=== PATIENT | female | born 1975 | race Caucasian/White ===

== ENCOUNTER 2017-05-08 17:58 | Emergency (ER) | payer MEDICARE, OTHER ==
[2017-05-08 18:47] VITALS: BP 126/87
[2017-05-08] MEDS ORDERED: Diphtheria,Pertussis(Acell),Tetanus Vaccine 0.5 ML SDV IM ONE (18:59)
--- NOTE | 2017-05-08 19:37 | EDM.PDOC ---
ED HPI GENERAL MEDICAL PROBLEM - General Chief Complaint: Laceration Stated Complaint: FINGER LACERATION Time Seen by Provider: 05/08/17 18:44 Source of Information: Reports: Patient History Limitations: Reports: No Limitations - History of Present Illness INITIAL COMMENTS - FREE TEXT/NARRATIVE: 41-year-old female presents for evaluation and treatment of the laceration to the right hand fourth finger. Patient reports this afternoon around noon she was opening a can of cat food. Reports that she sliced her finger on the can. States that the wound initially bled quite heavily but she was able to control the bleeding. She tried putting a bandage on the wound which caused significant bleeding again. She reports significant pain from the wound but has not taken anything for her discomfort. No numbness or tingling to the finger. No decreased ROM. Her tetanus is not up-to-date Onset: Today Location: Reports: Upper Extremity, Right Right Hand Pain Score (Numeric/FACES): 4 - Related Data Allergies Allergy/AdvReac Type Severity Reaction Status Date / Time No Known Allergies Allergy Verified 05/08/17 18:44 Home Meds: Home Meds Acetaminophen/oxyCODONE [Percocet 325-5 MG] 2 tab PO Q4H PRN #15 tablet [Rx] Metoclopramide [Reglan] 10 mg PO Q6H #30 tablet 03/24/15 [Rx] Ondansetron [Zofran ODT] 4 mg PO Q6H PRN #10 tab.dis 04/14/15 [Rx] Promethazine [Phenergan] 25 mg PO Q6H PRN #30 tablet 04/14/15 [Rx] diphenhydrAMINE HCl [Benadryl] 25 mg PO BID PRN #30 capsule 04/14/15 [Rx] Past Medical History Other Gastrointestinal History: Episodes of intractable vomiting [employer] History: Reports: Musculoskeletal History: Reports: Other (See Below) Other Musculoskeletal History: Degenerative Joint Disease, herniated 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, scoliosis - Past Surgical History Female Surgical History: Reports: Section Social & Family History - Family History Oncologic: Reports: Breast - Tobacco Use Smoking Status *Q: Former Smoker Years of Tobacco use: 10 Used Tobacco, but Quit: Yes Month Tobacco Last Used: September Second Hand Smoke Exposure: No - Caffeine Use Other Caffeine Use: drinks 6-7 cans of soda, and 2 energy drinks per day (5 hour energy) - Alcohol Use Days Per Week of Alcohol Use: 0 - Recreational Drug Use Recreational Drug Use: No ED ROS GENERAL - Review of Systems Review Of Systems: ROS reveals no pertinent complaints other than HPI. ED EXAM, SKIN/RASH Exam: See Below Exam Limited By: No Limitations General Appearance: Alert, WD/WN, No Apparent Distress, Anxious Respiratory/Chest: No Respiratory Distress, Lungs Clear, Normal Breath Sounds Cardiovascular: Normal Peripheral Pulses, Regular Rate, Rhythm, No Murmur Peripheral Pulses: 2+: Radial (R) Extremities: Normal Capillary Refill Neurological: Alert, Oriented, Normal Cognition Psychiatric: Normal Affect, Normal Mood Skin: Warm, Dry, Normal Color, Wound/Incision (1.5 cm laceration to the right hand 4th finger distal finer pad, liner, well approximated) Location, Skin: Upper Extremity, Right (4th distal finger) Characteristics: Linear Associated features: Tenderness ED SKIN PROCEDURES - Laceration/Wound Repair Right Distal Ventral Finger Lac/Wound length In cm: 1.5 (right hand 4th finger distal finger pad) Appearance: Subcutaneous, Linear, Clean Distal NVT: Neuro & Vascular Intact, No Tendon Injury Skin Prep: Chlorhexidine (Hibiciens), Saline, Sterile Drape Exploration/Debridement/Repair: Wound Explored, No Foreign Material Found Closed with: Dermabond Sterile Dressing Applied: Nurse Tetanus Status Addressed: Yes Complications: No Course - Vital Signs Last Recorded V/S: Last Vital Signs Temp 36.1 C 05/08/17 18:44 Pulse 80 05/08/17 18:44 Resp 18 05/08/17 18:44 BP 126/87 05/08/17 18:44 Pulse Ox 98 05/08/17 18:44 - Orders/Labs/Meds Meds: Medications Discontinued Medications Generic Name Dose Route Start Last Admin Trade Name Freq PRN Reason Stop Dose Admin Diphtheria/Tetanus/Acell Pertussis 0.5 ml 05/08/17 18:59 05/08/17 19:47 Adacel IM 05/08/17 19:00 0.5 ml .ONCE ONE Administration - Re-Assessments/Exams Free Text/Narrative Re-Assessment/Exam: 05/08/17 19:33 Wound was repaired with Dermabond. The patient tolerated this well. Her tetanus was updated. Discharge instructions as documented. Departure - Departure Time of Disposition: 19:35 Disposition: Home, Self-Care 01 Condition: Good Clinical Impression: Laceration - Discharge Information Instructions: Laceration Care, Adult, [id number] Referrals: PCP,None [Primary Care Provider] - Forms: ED Department Discharge Additional Instructions: OTC tylenol or motrin as needed for pain relief. monitor the area of signs of infection such as increased swelling, pus or redness. Present to the clinic or the ER should these develop. do not soak the wound. wash with gentle soap and water. Keep covered. the glue should fall off on its own in 7-10 days. Do not pick at it. Please return to the ER should your symptoms change or worsen.
== END 2017-05-08 19:50 | disposition home or self-care (01) ==
LOC: JD.ED 17:58
DX: S61.214A Laceration without foreign body of right ring finger without damage to nail, initial encounter (principal); Z87.891 Personal history of nicotine dependence; Z23 Encounter for immunization; W26.8XXA Contact with other sharp object(s), not elsewhere classified, initial encounter
CPT/HCPCS: 12001; 90471; 90715; 99282; 99283-25

== ENCOUNTER 2021-06-21 21:21 | Emergency (ER) | payer BC, MEDICARE ==
[2021-06-21] MEDS ORDERED: Sodium Chloride 0.9% 1,000 ML IV ONE ×2 (21:44→22:59)
[2021-06-21] MEDS ORDERED: Sodium Chloride 0.9% 10 ML Syringe FLUSH PRN (21:44)
[2021-06-21] MEDS ORDERED: Ondansetron 4 MG/2 ML SDV IVPUSH ONE ×2 (21:44→23:48)
[2021-06-21] MEDS ORDERED: Ondansetron 4 MG/2 ML SDV ONE (23:49)
[2021-06-22 01:19] VITALS: BP 116/66; PULSE 67
== END 2021-06-22 01:17 | disposition home or self-care (01) ==
LOC: JD.ED 21:21
DX: R11.2 Nausea with vomiting, unspecified (principal); E86.0 Dehydration; Z86.16 Personal history of COVID-19; Z72.0 Tobacco use
CPT/HCPCS: 36415; 80053; 81001; 83735; 85025; 86140; 96374; 96376; 99284; J2405; J7030